=== PATIENT | male | born 1995 | race Caucasian/White ===

== ENCOUNTER 2017-01-06 19:50 | Emergency (ER) | payer BC ==
[2017-01-06 22:37] VITALS: BP 134/60
== END 2017-01-06 22:37 | disposition home or self-care (01) ==
LOC: ED 19:50
PROC: 0HQGXZZ Repair Left Hand Skin, External Approach (ICD-10-PCS; principal; 2017-01-06)
PROC: BW28ZZZ Computerized Tomography (CT Scan) of Head (ICD-10-PCS; 2017-01-06)
PROC: BN25ZZZ Computerized Tomography (CT Scan) of Facial Bones (ICD-10-PCS; 2017-01-06)
DX: S00.83XA Contusion of other part of head, initial encounter (principal); S61.215A Laceration without foreign body of left ring finger without damage to nail, initial encounter; Y00.XXXA Assault by blunt object, initial encounter; Y92.9 Unspecified place or not applicable
CPT/HCPCS: J2001

== ENCOUNTER 2017-10-04 16:22 | Emergency (ER) | payer BC ==
[~2017-10-04] VITALS: Ht 182.9 cm; Wt 99.8 kg
[2017-10-04 16:27] VITALS: BP 162/85; Ht 182.9 cm; Wt 99.8 kg
== END 2017-10-04 17:13 | disposition other institution (70) ==
LOC: ED 16:22
DX: S50.811A Abrasion of right forearm, initial encounter (principal); Z88.6 Allergy status to analgesic agent; V43.52XA Car driver injured in collision with other type car in traffic accident, initial encounter; Y93.I9 Activity, other involving external motion; Y92.488 Other paved roadways as the place of occurrence of the external cause; Y99.8 Other external cause status
CPT/HCPCS: 99406

== ENCOUNTER 2017-10-04 16:22 | Emergency (ER) | payer OTHER | END 2017-10-04 17:13 | disposition other institution (70) | LOC: ED 16:22 | DX: Z02.89 Encounter for other administrative examinations (principal) ==